=== PATIENT | female | born 1960 | race American Indian/Alaskan Native ===

== ENCOUNTER 2017-06-19 00:23 | Emergency (ER) | payer SELFPAY ==
[2017-06-19 00:54] VITALS: BP 148/82
[2017-06-19 01:23] LABS: Basophils % (Auto) 0.9 % (0.0-1.8); Mean Corpuscular HGB Conc 33 % (30-34); Mean Corpuscular Hemoglobin 29 pg (28-32); Mean Corpuscular Volume 87 fl (79-97); Platelet Count 275 K/mm3 (140-440); Red Blood Count 4.14 M/mm3 (3.65-5.03); Red Cell Distribution Width 14.6 % (13.2-15.2); White Blood Count 5.7 K/mm3 (4.5-11.0)
[2017-06-19 01:36] LABS: Anion Gap 21 mmol/L; BUN/Creatinine Ratio 20; Blood Urea Nitrogen 14 mg/dL (7-17); Calcium 8.9 mg/dL (8.4-10.2); Carbon Dioxide 23 mmol/L (22-30); Chloride 97.9 mmol/L (98-107); Glucose 139 mg/dL (65-100); Potassium 3.4 mmol/L (3.6-5.0); Sodium 138 mmol/L (137-145)
== END 2017-06-19 07:50 | disposition left against medical advice (07) ==
LOC: ED 00:23
DX: R07.9 Chest pain, unspecified (principal); Z53.21 Procedure and treatment not carried out due to patient leaving prior to being seen by health care provider
CPT/HCPCS: 36415; 80048; 84484; 85025; 93005; 93010

== ENCOUNTER 2019-11-18 10:31 | Emergency (ER) | payer SELFPAY ==
[2019-11-18 11:53] LABS: Bacteria,Urine 2+ /HPF (Negative); Bilirubin,Urine NEG (Negative); Blood,Urine NEG (Negative); Color,Urine Yellow (Yellow); Mucus,Urine 2+ /HPF; Protein,Urine <15 mg/dL mg/dL (Negative); Urobilinogen,Urine < 2.0 mg/dL (<2.0)
--- NOTE | 2019-11-18 13:32 | Emergency Department Report ---
ED General Adult HPI - General Chief complaint: Back Pain/Injury Stated complaint: BACK PAIN Time Seen by Provider: 11/18/19 13:15 Source: patient Mode of arrival: Ambulatory Limitations: No Limitations - History of Present Illness Initial comments: 59-year-old -Turkish female presents to the emergency room for left side back pain x1 year. Patient states that the pain is deep inside on the left flank and it radiates down her leg. Patient denies any fever denies any diarrhea but does admit to vaginal spotting that is intermittent. Patient reports her last menstrual period was 02/19/2015. Patient denies any dysuria denies any abdominal pain but does report some mild pelvic discomfort. Patient reports nothing makes it worse with pain medication makes it better. Patient has been taken Aleve and Tylenol. Patient does have a primary care provider Dr. Amador at [facility] in [place]. Onset/Timin -: year(s) Location: back Severity scale (0 -10): 8 Quality: aching Consistency: intermittent Improves with: medication Worsens with: none Treatments Prior to Arrival: none - Related Data Home Medications Medication Instructions Recorded Confirmed Last Taken Pravastatin 20 mg PO HS 02/19/15 02/19/15 Unknown Previous Rx's Medication Instructions Recorded Last Taken Type oxyCODONE /ACETAMINOPHEN [Percocet 1 tab PO Q6HR PRN #20 tab 11/30/15 Unknown Rx 5/325] Nitrofurantoin [place]/M-Cryst 100 mg PO Q12HR #14 capsule 11/18/19 Unknown Rx [Macrobid CAP] Allergies Allergy/AdvReac Type Severity Reaction Status Date / Time No Known Allergies Allergy Verified 04/09/14 11:08 ED Review of Systems ROS: Stated complaint: BACK PAIN Other details as noted in HPI Comment: All other systems reviewed and negative ED Past Medical Hx - Past Medical History Hx Hypertension: No Hx Liver Disease: No Hx Renal Disease: No Hx Arthritis: Yes Hx Seizures: No Hx Asthma: No Hx COPD: No Additional medical history: High Cholesterol, Thyroid disease, - Surgical History Additional Surgical History: parathyroid surgery November 2015 - Social History Smoking Status: Never Smoker Substance Use Type: None - Medications Home Medications: Home Medications Medication Instructions Recorded Confirmed Last Taken Type Pravastatin 20 mg PO HS 02/19/15 02/19/15 Unknown History oxyCODONE /ACETAMINOPHEN [Percocet 1 tab PO Q6HR PRN #20 tab 11/30/15 Unknown Rx 5/325] Nitrofurantoin [place]/M-Cryst 100 mg PO Q12HR #14 capsule 11/18/19 Unknown Rx [Macrobid CAP] ED Physical Exam - General Limitations: No Limitations General appearance: alert, in no apparent distress - Head Head exam: Present: atraumatic, normocephalic - Eye Eye exam: Present: normal appearance - ENT ENT exam: Present: mucous membranes moist - Neck Neck exam: Present: normal inspection - Respiratory Respiratory exam: Present: normal lung sounds bilaterally. Absent: respiratory distress - Cardiovascular Cardiovascular Exam: Present: regular rate, normal rhythm. Absent: systolic murmur, diastolic murmur, rubs, gallop - GI/Abdominal GI/Abdominal exam: Present: soft, normal bowel sounds - Extremities Exam Extremities exam: Present: normal inspection - Back Exam Back exam: Present: normal inspection - Neurological Exam Neurological exam: Present: alert, oriented X3 - Psychiatric Psychiatric exam: Present: normal affect, normal mood - Skin Skin exam: Present: warm, dry, intact, normal color. Absent: rash ED Course Vital Signs 11/18/19 11:05 Temperature 98.5 F Pulse Rate 67 Respiratory 18 Rate Blood Pressure 159/91 O2 Sat by Pulse 99 Oximetry ED Medical Decision Making - Lab Data Lab Results 11/18/19 Range/Units 11:34 Urine Color Yellow (Yellow) Urine Turbidity Slightly-cloudy (Clear) Urine pH 5.0 (5.0-7.0) Ur Specific [place] 1.026 (1.003-1.030) Urine Protein <15 mg/dl (Negative) mg/dL Urine Glucose (UA) Neg (Negative) mg/dL Urine Ketones Neg (Negative) mg/dL Urine Blood Neg (Negative) Urine Nitrite Neg (Negative) Urine Bilirubin Neg (Negative) Urine Urobilinogen < 2.0 (<2.0) mg/dL Ur Leukocyte Esterase Mod (Negative) Urine WBC (Auto) 14.0 H (0.0-6.0) /HPF Urine RBC (Auto) 5.0 (0.0-6.0) /HPF U Epithel Cells (Auto) 7.0 (0-13.0) /HPF Urine Bacteria (Auto) 2+ (Negative) /HPF Urine Mucus 2+ /HPF - Medical Decision Making 59-year-old -Turkish female presents to the emergency room for left side back pain x1 year. Patient states that the pain is deep inside on the left flank and it radiates down her leg. Patient denies any fever denies any diarrhea but does admit to vaginal spotting that is intermittent. Patient reports her last menstrual period was 02/19/2015. Patient denies any dysuria denies any abdominal pain but does report some mild pelvic discomfort. Patient reports nothing makes it worse with pain medication makes it better. Patient has been taken Aleve and Tylenol. Patient does have a primary care provider Dr. Amador at [facility] in [place]. Patient has a urinary tract infection will be treated with Macrobid. Urine culture has been sent. Patient is to follow back up at [facility] where her primary care provider is. Critical care attestation.: If time is entered above; I have spent that time in minutes in the direct care of this critically ill patient, excluding procedure time. ED Disposition Clinical Impression: UTI (urinary tract infection) Qualifiers: Urinary tract infection type: site unspecified Hematuria presence: with hematuria Qualified Code(s): N39.0 - Urinary tract infection, site not specified; R31.9 - Hematuria, unspecified Disposition: DC-01 TO HOME OR SELFCARE Is pt being admited?: No Does the pt Need Aspirin: No Condition: Stable Instructions: Urinary Tract Infection in Women (ED) Additional Instructions: Patient has a urinary tract infection will be treated with Macrobid. Patient is to follow back up at [facility] where her primary care provider is. Prescriptions: Nitrofurantoin [place]/M-Cryst [Macrobid CAP] 100 mg PO Q12HR #14 capsule Referrals: KAMI MCARTHUR MD [Primary Care Provider] - 3-5 Days [facility] [Provider Group] - 3-5 Days
[2019-11-18 15:55] VITALS: BP 150/88
== END 2019-11-18 15:54 | disposition home or self-care (01) ==
LOC: ED 10:31
DX: N39.0 Urinary tract infection, site not specified (principal); M19.90 Unspecified osteoarthritis, unspecified site; E78.00 Pure hypercholesterolemia, unspecified; Z98.890 Other specified postprocedural states; Z79.899 Other long term (current) drug therapy
CPT/HCPCS: 81001; 87086; 99283

== ENCOUNTER 2021-05-11 10:52 | Emergency (ER) | payer OTHER ==
--- NOTE | 2021-05-11 11:21 | Emergency Department Report ---
ED Chest Pain HPI - General Chief Complaint: Medical Clearance Stated Complaint: POSS COVID POSITIVE/CHEST PAIN Time Seen by Provider: 05/11/21 11:12 Source: patient, EMS Mode of arrival: Ambulatory Limitations: No Limitations - History of Present Illness Initial Comments: Patient is a 60-year-old female presents emergency room complaints of midsternal chest pain that began at 3 AM this morning. She describes the pain as intermittent sharp pain. She states that she also has upper back pain which she describes as an aching. She states that she has had intermittent fever and chills. Patient states that she is positive for COVID-19. She states that she received a COVID 19 antibody infusion at [facility]. She states that she has occasional mild shortness of breath. She denies any hemoptysis, vomiting, diarrhea, leg swelling, calf pain, numbness, weakness. Past medical history of hyperlipidemia. No allergies to medications. She is a never smoker. She denies any family cardiac history. She denies any recent travel, recent surgery, recent immobilization, hormone use. - Related Data Home Medications Medication Instructions Recorded Confirmed Last Taken Pravastatin 20 mg PO HS 02/19/15 02/19/15 Unknown Previous Rx's Medication Instructions Recorded Last Taken Type oxyCODONE /ACETAMINOPHEN [Percocet 1 tab PO Q6HR PRN #20 tab 11/30/15 Unknown Rx 5/325] Nitrofurantoin [place]/M-Cryst 100 mg PO Q12HR #14 capsule 11/18/19 Unknown Rx [Macrobid CAP] Azithromycin [Zithromax TAB] 250 mg PO QDAY 5 Days #6 tablet 05/11/21 Unknown Rx Benzonatate [Tessalon Perles] 100 mg PO Q8HR PRN #12 capsule 05/11/21 Unknown Rx Dexamethasone 6 mg PO DAILY 7 Days #7 tab 05/11/21 Unknown Rx Allergies Allergy/AdvReac Type Severity Reaction Status Date / Time No Known Allergies Allergy Verified 04/09/14 11:08 Heart Score - HEART Score History: Slightly suspicious EKG: Normal Age: 45-65 Risk factors: 1-2 risk factors Troponin: < normal limit HEART Score: 2 - EKG Read Time Time EKG Completed: 13:15 EKG Read Time: 13:15 ED Review of Systems ROS: Stated complaint: POSS COVID POSITIVE/CHEST PAIN Other details as noted in HPI Comment: All other systems reviewed and negative ED Past Medical Hx - Past Medical History Hx Hypertension: No Hx Liver Disease: No Hx Renal Disease: No Hx Arthritis: Yes Hx Seizures: No Hx Asthma: No Hx COPD: No Additional medical history: High Cholesterol, Thyroid disease, - Surgical History Additional Surgical History: parathyroid surgery November 2015 - Social History Smoking Status: Never Smoker - Medications Home Medications: Home Medications Medication Instructions Recorded Confirmed Last Taken Type Pravastatin 20 mg PO HS 02/19/15 02/19/15 Unknown History oxyCODONE /ACETAMINOPHEN [Percocet 1 tab PO Q6HR PRN #20 tab 11/30/15 Unknown Rx 5/325] Nitrofurantoin [place]/M-Cryst 100 mg PO Q12HR #14 capsule 11/18/19 Unknown Rx [Macrobid CAP] Azithromycin [Zithromax TAB] 250 mg PO QDAY 5 Days #6 tablet 05/11/21 Unknown Rx Benzonatate [Tessalon Perles] 100 mg PO Q8HR PRN #12 capsule 05/11/21 Unknown Rx Dexamethasone 6 mg PO DAILY 7 Days #7 tab 05/11/21 Unknown Rx ED Physical Exam - General Limitations: No Limitations General appearance: alert, in no apparent distress - Head Head exam: Present: atraumatic, normocephalic - Eye Eye exam: Present: normal appearance - Respiratory Respiratory exam: Present: normal lung sounds bilaterally. Absent: respiratory distress, wheezes, rales, rhonchi, stridor, chest wall tenderness, accessory muscle use, decreased breath sounds, prolonged expiratory - Cardiovascular Cardiovascular Exam: Present: regular rate, normal rhythm, normal heart sounds. Absent: systolic murmur, diastolic murmur, rubs, gallop - Neurological Exam Neurological exam: Present: alert, oriented X3 - Psychiatric Psychiatric exam: Present: normal affect, normal mood - Skin Skin exam: Present: warm, dry, intact ED Course Vital Signs 05/11/21 05/11/21 05/11/21 10:59 11:04 14:05 Temperature 98.5 F Pulse Rate 63 52 L Respiratory 20 18 Rate Blood Pressure 169/89 159/79 O2 Sat by Pulse 98 98 100 Oximetry - Reevaluation(s) Reevaluation #1: 05/11/21 12:30 called the lab regarding delay in d-dimer results, they advised me it was on the analyzer 05/11/21 13:40 called the lab again regarding delay in d-dimer results as it has been over an hour, they advised me they would "look into it" CLEM score - Clem Score Age > 65: (0) No Aspirin use within the Past 7 Days: (0) No 3 or more CAD Risk Factors: (0) No 2 or more Angina events in past 24 hrs: (0) No Known CAD with more than 50% Stenosis: (0) No Elevated Cardiac Markers: (0) No ST Deviation Greater than 0.5mm: (0) No CLEM Score: 0 ED Medical Decision Making - Lab Data Result diagrams: 05/11/21 11:41 05/11/21 11:41 Lab Results 05/11/21 05/11/21 05/11/21 Range/Units 11:41 11:41 11:41 WBC 3.5 L (4.5-11.0) K/mm3 RBC 3.89 (3.65-5.03) M/mm3 Hgb 11.3 (10.1-14.3) gm/dl Hct 34.8 (30.3-42.9) % MCV 89 (79-97) fl MCH 29 (28-32) pg MCHC 32 (30-34) % RDW 14.2 (13.2-15.2) % Plt Count 245 (140-440) K/mm3 Lymph % (Auto) 43.3 H (13.4-35.0) % [place] % (Auto) 9.1 H (0.0-7.3) % Eos % (Auto) 2.2 (0.0-4.3) % Baso % (Auto) 0.3 (0.0-1.8) % Lymph # (Auto) 1.5 (1.2-5.4) K/mm3 [place] # (Auto) 0.3 (0.0-0.8) K/mm3 Eos # (Auto) 0.1 (0.0-0.4) K/mm3 Baso # (Auto) 0.0 (0.0-0.1) K/mm3 Seg Neutrophils % 45.1 (40.0-70.0) % Seg Neutrophils # 1.6 L (1.8-7.7) K/mm3 D-Dimer 477.7 H (0-234) ng/mlDDU Sodium 143 (137-145) mmol/L Potassium 3.7 (3.6-5.0) mmol/L Chloride 105.0 (98-107) mmol/L Carbon Dioxide 26 (22-30) mmol/L Anion Gap 16 mmol/L BUN 9 (7-17) mg/dL Creatinine 0.5 L (0.6-1.2) mg/dL Estimated GFR > 60 ml/min BUN/Creatinine Ratio 18 % Glucose 108 H (65-100) mg/dL Calcium 9.7 (8.4-10.2) mg/dL Total Bilirubin 0.40 (0.1-1.2) mg/dL AST 18 (5-40) units/L ALT 15 (7-56) units/L Alkaline Phosphatase 83 (35-129) units/L Troponin T < 0.010 (0.00-0.029) ng/mL NT-Pro-B Natriuret Pep 72.13 (0-900) pg/mL Total Protein 7.7 (6.3-8.2) g/dL Albumin 3.8 L (3.9-5) g/dL Albumin/Globulin Ratio 1.0 % 05/11/21 Range/Units 14:46 WBC (4.5-11.0) K/mm3 RBC (3.65-5.03) M/mm3 Hgb (10.1-14.3) gm/dl Hct (30.3-42.9) % MCV (79-97) fl MCH (28-32) pg MCHC (30-34) % RDW (13.2-15.2) % Plt Count (140-440) K/mm3 Lymph % (Auto) (13.4-35.0) % [place] % (Auto) (0.0-7.3) % Eos % (Auto) (0.0-4.3) % Baso % (Auto) (0.0-1.8) % Lymph # (Auto) (1.2-5.4) K/mm3 [place] # (Auto) (0.0-0.8) K/mm3 Eos # (Auto) (0.0-0.4) K/mm3 Baso # (Auto) (0.0-0.1) K/mm3 Seg Neutrophils % (40.0-70.0) % Seg Neutrophils # (1.8-7.7) K/mm3 D-Dimer (0-234) ng/mlDDU Sodium (137-145) mmol/L Potassium (3.6-5.0) mmol/L Chloride (98-107) mmol/L Carbon Dioxide (22-30) mmol/L Anion Gap mmol/L BUN (7-17) mg/dL Creatinine (0.6-1.2) mg/dL Estimated GFR ml/min BUN/Creatinine Ratio % Glucose (65-100) mg/dL Calcium (8.4-10.2) mg/dL Total Bilirubin (0.1-1.2) mg/dL AST (5-40) units/L ALT (7-56) units/L Alkaline Phosphatase (35-129) units/L Troponin T < 0.010 (0.00-0.029) ng/mL NT-Pro-B Natriuret Pep (0-900) pg/mL Total Protein (6.3-8.2) g/dL Albumin (3.9-5) g/dL Albumin/Globulin Ratio % Vital Signs 05/11/21 05/11/21 05/11/21 10:59 11:04 14:05 Temperature 98.5 F Pulse Rate 63 52 L Respiratory 20 18 Rate Blood Pressure 169/89 159/79 O2 Sat by Pulse 98 98 100 Oximetry - EKG Data EKG shows normal: sinus rhythm, axis, intervals, QRS complexes Rate: bradycardia (51 bpm) - EKG Data 05/11/21 15:10 non specific T wave inversion in Lead III, aVF, v1, v2, v3 no STEMI - Radiology Data Radiology results: report reviewed Ordering Physician: ALFREDA GIORDANO Date of Service: 05/11/21 Procedure(s): XR chest routine 2V Accession Number(s): [id number] cc: ALFREDA GIORDANO Fluoro Time In Minutes: CHEST 2 VIEWS INDICATION / CLINICAL INFORMATION: Chest Pain. COMPARISON: None available. FINDINGS: SUPPORT DEVICES: None. HEART / MEDIASTINUM: No significant abnormality. LUNGS / PLEURA: No significant pulmonary or pleural abnormality. No pneumothorax. ADDITIONAL FINDINGS: No significant additional findings. IMPRESSION: 1. No acute findings. Signer Name: Jarred Chowdhury MD Signed: 05/11/2021 11:35 AM Workstation Name: [id number] Transcribed By: JORDI Dictated By: Jarred Chowdhury MD Electronically Authenticated By: Jarred Chowdhury MD Signed Date/Time: 05/11/211134 DD/ 34 TD/TT: Ordering Physician: ALFREDA GIORDANO Date of Service: 05/11/21 Procedure(s): CT angio chest Accession Number(s): [id number] cc: ALFREDA GIORDANO CTA CHEST WITH IV CONTRAST INDICATION: CP, SOB, d-dimer elevated, COVID + 12 days ago 100 ML OMNI 350 . TECHNIQUE: Axial CT images were obtained through the chest after injection of 100 cc IV contrast. 3 plane MIP reconstructions were produced. All CT scans at this location are performed using CT dose reduction for ALARA by means of automated exposure control. COMPARISON: Chest x-ray same day FINDINGS: PULMONARY ARTERIES: No pulmonary emboli. THORACIC AORTA: No acute abnormality. HEART: Normal. CORONARY ARTERIES: No significant calcification. PLEURA: No pleural effusion. No pneumothorax. LYMPH NODES: No significant adenopathy. LUNGS: Multifocal patchy groundglass parenchymal disease right middle and both lower lobes characteristic for Covid pneumonia ADDITIONAL FINDINGS: None. UPPER ABDOMEN: No acute findings. SKELETAL STRUCTURES: No significant osseous abnormality. IMPRESSION: 1. No CT evidence for pulmonary embolism. 2. Bilateral Covid pneumonia Signer Name: John Crocker MD Signed: 05/11/2021 6:13 PM Workstation Name: [id number] Transcribed By: TL Dictated By: John Crocker MD Electronically Authenticated By: John Crocker MD Signed Date/Time: 05/11/211812 DD/ 09 TD/TT: - Medical Decision Making Patient is a 60-year-old female presents emergency room complaints of midsternal chest pain that began at 3 AM this morning. She describes the pain as intermittent sharp pain. She states that she also has upper back pain which she describes as an aching. She states that she has had intermittent fever and chills. Patient states that she is positive for COVID-19. She states that she received a COVID 19 antibody infusion at [facility]. She states that she has occasional mild shortness of breath. She denies any hemoptysis, vomiting, diarrhea, leg swelling, calf pain, numbness, weakness. Past medical history of hyperlipidemia. No allergies to medications. She is a never smoker. She denies any family cardiac history. She denies any recent travel, recent surgery, recent immobilization, hormone use. Vitals are stable. EKG with sinus bradycardia and nonspecific T wave inversion, no STEMI. Labs with a decreased white blood cell count and elevated D-dimer. Troponin is negative x2. Chest x- ray: 1. No acute findings. Multiple nurses attempted to get IV but had difficulty, the IV team was called and an IV was able to be placed in the AC for CTA. CT angio chest: 1. No CT evidence for pulmonary embolism. 2. Bilateral Covid pneumonia. Patient was ambulated in the emergency department by florentino Hoffman and maintain oxygen saturation of 100% on room air. Heart score is 2, CLEM score is 0, low risk for cardiac event. Symptoms likely related to patient's findings of COVID-19 pneumonia. Patient given prescription for medication. Advised patient Please take medication as prescribed. Follow-up with your [facility] care doctor for reexamination. Return to emergency room immediately for any new or worsening symptoms. Recommend for you to get a pulse oximetry meter [id number] and to return to emergency room if your oxygen is dropping below 93%. Critical care attestation.: If time is entered above; I have spent that time in minutes in the direct care of this critically ill patient, excluding procedure time. ED Disposition Clinical Impression: Pneumonia due to COVID-19 virus, SOB (shortness of breath) Chest pain Qualifiers: Chest pain type: unspecified Qualified Code(s): R07.9 - Chest pain, unspecified Disposition: 01 HOME / SELF CARE / HOMELESS Is pt being admited?: No Does the pt Need Aspirin: No Condition: Stable Instructions: COVID-19, Bacterial Pneumonia (ED) Additional Instructions: Please take medication as prescribed. Follow-up with your primary care doctor for reexamination. Return to emergency room immediately for any new or worsening symptoms. Recommend for you to get a pulse oximetry meter [id number] and to return to emergency room if your oxygen is dropping below 93%. Prescriptions: Dexamethasone 6 mg PO DAILY 7 Days #7 tab Benzonatate [Tessalon Perles] 100 mg PO Q8HR PRN #12 capsule PRN Reason: cough Azithromycin [Zithromax TAB] 250 mg PO QDAY 5 Days #6 tablet Referrals: PRIMARY CARE,MD [Primary Care Provider] - 2-3 Days Time of Disposition: 18:19 Print Language: BOTSWANAN
--- NOTE | 2021-05-11 11:40 | XRay Report ---
CHEST 2 VIEWS INDICATION / CLINICAL INFORMATION: Chest Pain. COMPARISON: None available. FINDINGS: SUPPORT DEVICES: None. HEART / MEDIASTINUM: No significant abnormality. LUNGS / PLEURA: No significant pulmonary or pleural abnormality. No pneumothorax. ADDITIONAL FINDINGS: No significant additional findings. IMPRESSION: 1. No acute findings. Signer Name: Jarred Chowdhury MD Signed: 05/11/2021 11:35 AM Workstation Name: [id number]
[2021-05-11 12:06] LABS: Basophils % (Auto) 0.3 % (0.0-1.8); Eosinophils # (Auto) 0.1 K/mm3 (0.0-0.4); Eosinophils % (Auto) 2.2 % (0.0-4.3); Hematocrit 34.8 % (30.3-42.9); Hemoglobin 11.3 gm/dl (10.1-14.3); Lymphocytes # (Auto) 1.5 K/mm3 (1.2-5.4); Lymphocytes % (Auto) 43.3 % (13.4-35.0); Mean Corpuscular HGB Conc 32 % (30-34); Mean Corpuscular Volume 89 fl (79-97); Monocytes # (Auto) 0.3 K/mm3 (0.0-0.8); Monocytes % (Auto) 9.1 % (0.0-7.3); Platelet Count 245 K/mm3 (140-440); Red Blood Count 3.89 M/mm3 (3.65-5.03); Red Cell Distribution Width 14.2 % (13.2-15.2)
[2021-05-11 12:22] LABS: Alanine Aminotransferase 15 units/L (7-56); Albumin 3.8 g/dL (3.9-5); Blood Urea Nitrogen 9 mg/dL (7-17); Calcium 9.7 mg/dL (8.4-10.2); Hemolysis Index 4
[2021-05-11 12:43] LABS: BUN/Creatinine Ratio 18
[2021-05-11 14:09] VITALS: BP 159/79
--- NOTE | 2021-05-11 18:17 | Cat Scan Report ---
CTA CHEST WITH IV CONTRAST INDICATION: CP, SOB, d-dimer elevated, COVID + 12 days ago 100 ML OMNI 350 . TECHNIQUE: Axial CT images were obtained through the chest after injection of 100 cc IV contrast. 3 plane MIP re constructions were produced. All CT scans at this location are performed using CT dose reduction for ALARA by means of automated exposure control. COMPARISON: Chest x-ray same day FINDINGS: PULMONARY ARTERIES: No pulmonary emboli. THORACIC AORTA: No acute abnormality. HEART: Normal. CORONARY ARTERIES: No significant calcification. PLEURA: No pleural effusion. No pneumothorax. LYMPH NODES: No significant adenopathy. LUNGS: Multifocal patchy groundglass parenchymal disease right middle and both lower lobes characteri stic for Covid pneumonia ADDITIONAL FINDINGS: None. UPPER ABDOMEN: No acute findings. SKELETAL STRUCTURES: No significant osseous abnormality. IMPRESSION: 1. No CT evidence for pulmonary embolism. 2. Bilateral Covid pneumonia Signer Name: John Crocker MD Signed: 05/11/2021 6:13 PM Workstation Name: [id number]
--- NOTE | 2021-05-12 13:32 | Electrocardiograph Report ---
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
== END 2021-05-11 18:36 | disposition home or self-care (01) ==
LOC: ED 10:52
DX: U07.1 COVID-19 (principal); J12.82 Pneumonia due to coronavirus disease 2019; R06.02 Shortness of breath; R07.9 Chest pain, unspecified; M19.90 Unspecified osteoarthritis, unspecified site; E78.00 Pure hypercholesterolemia, unspecified; E07.9 Disorder of thyroid, unspecified; Z98.890 Other specified postprocedural states
CPT/HCPCS: 36415; 71046; 71275; 80053; 83880; 84484; 85025; 85379; 93005; 99285; Q9967

== ENCOUNTER 2021-05-25 21:48 | Emergency (ER) | payer OTHER ==
[2021-05-25 22:12] VITALS: BP 119/66
[2021-05-25] MEDS ORDERED: ASPIRIN 325 MG TAB PO ONE (22:40)
--- NOTE | 2021-05-25 22:46 | Emergency Department Report ---
ED Chest Pain HPI - General Chief Complaint: Chest Pain Stated Complaint: CHEST PAIN PUI?: No Time Seen by Provider: 05/25/21 22:25 Source: patient, EMS Mode of arrival: Stretcher Limitations: No Limitations - History of Present Illness Initial Comments: Patient is a 60-year-old female who presents emergency room with complaints of chest pain. Patient states her chest pain is in her bilateral chest and substernal. Patient states that it started last night. Patient states the chest pain is intermittent. Patient states it comes and goes approximately once to twice per hour. Patient denies fever and chills. Patient denies recent travel. Patient denies recent international travel. Patient denies exposure to the novel coronavirus. Patient denies sick contacts. Patient denies fever and chills. Patient denies cough. Patient denies diarrhea. Patient denies coming in contact with anybody with symptoms of the novel coronavirus. Patient states she is not vaccinated gets COVID-19. Patient states she had Covid 26 days ago but did not require admission to the hospital. MD Complaint: chest pain -: Sudden Onset: during rest Pain Location: substernal, left chest, right chest Pain Radiation: none Severity scale (0 -10): 5 Quality: heaviness Consistency: intermittent Improves With: nothing Worsens With: nothing re: denies: nausea, vomting, diaphoresis, dyspnea, sense of impending doom Other Symptoms: denies: cough, fever, syncope, rash, acid taste in mouth, leg swelling, palpitations, burping Treatments Prior to Arrival: none Aspirin use within the Past 7 Days: (0) No - Related Data On Oral Contraceptives: No Home Medications Medication Instructions Recorded Confirmed Last Taken Pravastatin 20 mg PO HS 02/19/15 02/19/15 Unknown Previous Rx's Medication Instructions Recorded Last Taken Type oxyCODONE /ACETAMINOPHEN [Percocet 1 tab PO Q6HR PRN #20 tab 11/30/15 Unknown Rx 5/325] Nitrofurantoin [place]/M-Cryst 100 mg PO Q12HR #14 capsule 11/18/19 Unknown Rx [Macrobid CAP] Azithromycin [Zithromax TAB] 250 mg PO QDAY 5 Days #6 tablet 05/11/21 Unknown Rx Benzonatate [Tessalon Perles] 100 mg PO Q8HR PRN #12 capsule 05/11/21 Unknown Rx Dexamethasone 6 mg PO DAILY 7 Days #7 tab 05/11/21 Unknown Rx Allergies Allergy/AdvReac Type Severity Reaction Status Date / Time No Known Allergies Allergy Verified 05/25/21 22:12 Heart Score - HEART Score History: Slightly suspicious EKG: Normal Age: 45-65 Risk factors: 1-2 risk factors Troponin: < normal limit HEART Score: 2 - EKG Read Time Time EKG Completed: 03:07 EKG Read Time: 03:10 ED Review of Systems ROS: Stated complaint: CHEST PAIN Other details as noted in HPI Constitutional: denies: chills, fever Eyes: denies: eye pain, eye discharge, vision change ENT: denies: ear pain, throat pain Respiratory: denies: cough, shortness of breath, wheezing Cardiovascular: as per HPI, chest pain. denies: palpitations Endocrine: no symptoms reported Gastrointestinal: denies: abdominal pain, nausea, diarrhea Genitourinary: denies: urgency, dysuria, discharge Musculoskeletal: denies: back pain, joint swelling, arthralgia Skin: denies: rash, lesions Neurological: denies: headache, weakness, paresthesias Psychiatric: denies: anxiety, depression Hematological/Lymphatic: denies: easy bleeding, easy bruising ED Past Medical Hx - Past Medical History Previous Medical History?: Yes Hx Hypertension: No Hx Liver Disease: No Hx Renal Disease: No Hx Arthritis: Yes Hx Seizures: No Hx Asthma: No Hx COPD: No Additional medical history: High Cholesterol, Thyroid disease, - Surgical History Past Surgical History?: Yes Additional Surgical History: parathyroid surgery November 2015 - Family History Family history: no significant - Social History Smoking Status: Never Smoker Substance Use Type: None - Medications Home Medications: Home Medications Medication Instructions Recorded Confirmed Last Taken Type Pravastatin 20 mg PO HS 02/19/15 02/19/15 Unknown History oxyCODONE /ACETAMINOPHEN [Percocet 1 tab PO Q6HR PRN #20 tab 11/30/15 Unknown Rx 5/325] Nitrofurantoin [place]/M-Cryst 100 mg PO Q12HR #14 capsule 11/18/19 Unknown Rx [Macrobid CAP] Azithromycin [Zithromax TAB] 250 mg PO QDAY 5 Days #6 tablet 05/11/21 Unknown Rx Benzonatate [Tessalon Perles] 100 mg PO Q8HR PRN #12 capsule 05/11/21 Unknown Rx Dexamethasone 6 mg PO DAILY 7 Days #7 tab 05/11/21 Unknown Rx ED Physical Exam - General Limitations: No Limitations General appearance: alert, in no apparent distress - Head Head exam: Present: atraumatic, normocephalic - Eye Eye exam: Present: normal appearance - ENT ENT exam: Present: mucous membranes moist - Neck Neck exam: Present: normal inspection - Respiratory Respiratory exam: Present: normal lung sounds bilaterally. Absent: respiratory distress - Cardiovascular Cardiovascular Exam: Present: regular rate, normal rhythm. Absent: systolic murmur, diastolic murmur, rubs, gallop - GI/Abdominal GI/Abdominal exam: Present: soft, normal bowel sounds. Absent: distended, tenderness, guarding - Extremities Exam Extremities exam: Present: normal inspection - Back Exam Back exam: Present: normal inspection - Neurological Exam Neurological exam: Present: alert, oriented X3 - Psychiatric Psychiatric exam: Present: normal affect, normal mood - Skin Skin exam: Present: warm, dry, intact, normal color. Absent: rash ED Course Vital Signs 05/25/21 22:05 Temperature 98.8 F Pulse Rate 89 Respiratory 18 Rate Blood Pressure 119/66 O2 Sat by Pulse 99 Oximetry - Reevaluation(s) Reevaluation #1: Patient states she is pain-free. Patient states she has not had any pain while in the ER. I discussed all results and clinical findings with patient. I discussed plan of care with patient. Patient agrees with plan of care. Patient is stable for discharge. Patient will be discharged home. Patient given discharge instructions. Patient voiced understanding of discharge instructions. 05/26/21 03:35 MIMI score - Mimi Score Age > 65: (0) No Aspirin use within the Past 7 Days: (0) No 3 or more CAD Risk Factors: (0) No 2 or more Angina events in past 24 hrs: (0) No Known CAD with more than 50% Stenosis: (0) No Elevated Cardiac Markers: (0) No ST Deviation Greater than 0.5mm: (0) No MIMI Score: 0 ED Medical Decision Making - Lab Data Result diagrams: 05/25/21 22:59 05/25/21 22:59 - EKG Data -: EKG Interpreted by Me EKG shows normal: sinus rhythm, axis, intervals, QRS complexes, ST-T waves Rate: bradycardia - Radiology Data Radiology results: report reviewed, image reviewed CHEST 1 VIEW INDICATION / CLINICAL INFORMATION: Chest Pain STUDY TIME: 2240 COMPARISON: 05/11/2021 FINDINGS: SUPPORT DEVICES: None HEART / MEDIASTINUM: No significant abnormality. LUNGS / PLEURA: Artifact is seen in the mid chest. Lung johnston appear clear. No pneumothorax. ADDITIONAL FINDINGS: No significant additional findings. IMPRESSION: No significant acute abnormality - Medical Decision Making Patient is a 60-year-old female that presents emergency room with chest pain. Patient's chest pain was resolved prior to initial evaluation. Patient did not have any further chest pain in the ER. Patient had a full cardiac work-up. Patient had labs done which were essentially unremarkable. Patient had 2 sets of cardiac enzymes were both negative. Patient had a chest x-ray which shows no acute findings. Patient had a EKG done which shows sinus bradycardia and normal ST. No ST changes noted on EKG. I personally reviewed the patient's EKG and chest x-ray. Patient does not require any further emergency medical service. Patient not require inpatient service. Patient stable for discharge. I discussed all results and clinical findings with patient. I discussed plan of care with patient. Patient agrees with plan of care. Patient is stable for discharge. Patient will be discharged home. Patient given discharge instructions. Patient voiced understanding of discharge instructions. Patient is chest pain is low risk. Patient's heart score is low. Patient's MIMI score is low. Patient is chest pain can be worked up as an outpatient. Patient instructed to follow-up with her primary care. Patient information will be faxed over to our cardiology group in order to follow-up with the patient's chest pain and for risk stratification of the patient's chest pain. - Differential Diagnosis Chest pain, acid reflux, chest wall pain, noncardiac chest pain Critical care attestation.: If time is entered above; I have spent that time in minutes in the direct care of this critically ill patient, excluding procedure time. ED Disposition Clinical Impression: Chest pain Qualifiers: Chest pain type: unspecified Qualified Code(s): R07.9 - Chest pain, unspecified Disposition: HOME / SELF CARE / HOMELESS Is pt being admited?: No Does the pt Need Aspirin: No Condition: Stable Instructions: Nonspecific Chest Pain, Adult, Chest Wall Pain Additional Instructions: Patient to follow-up with primary care in 2 to 3 days. Patient to follow-up with ethical hacker in 2 to 3 days. Patient to rest. Patient to increase water. Patient to avoid strenuous exercise or heavy lifting until cleared by ethical hacker and primary care. Patient to take Tylenol or ibuprofen as needed for pain. Patient continue all home medications. Patient to return to the ER if condition worsens, changes or new symptoms arise. Referrals: PRIMARY CARE, [Primary Care Provider] - 2-3 Days CAMILO HEREDIA MD [Staff Physician] - 3-5 Days Time of Disposition: 03:39
--- NOTE | 2021-05-25 23:10 | XRay Report ---
CHEST 1 VIEW INDICATION / CLINICAL INFORMATION: Chest Pain STUDY TIME: 2240 COMPARISON: 05/11/2021 FINDINGS: SUPPORT DEVICES: None HEART / MEDIASTINUM: No significant abnormality. LUNGS / PLEURA: Artifact is seen in the mid chest. Lung johnston appear clear. No pneumothorax. ADDITIONAL FINDINGS: No significant additional findings. IMPRESSION: No significant acute abnormality Signer Name: Prosper Rincon MD Signed: 05/25/2021 11:06 PM Workstation Name: [id number]
[2021-05-25 23:27] LABS: Basophils % (Auto) 0.5 % (0.0-1.8); Eosinophils # (Auto) 0.2 K/mm3 (0.0-0.4); Eosinophils % (Auto) 4.5 % (0.0-4.3); Hematocrit 33.8 % (30.3-42.9); Hemoglobin 11.1 gm/dl (10.1-14.3); Lymphocytes # (Auto) 1.8 K/mm3 (1.2-5.4); Lymphocytes % (Auto) 39.5 % (13.4-35.0); Mean Corpuscular HGB Conc 33 % (30-34); Mean Corpuscular Volume 90 fl (79-97); Monocytes # (Auto) 0.4 K/mm3 (0.0-0.8); Monocytes % (Auto) 9.7 % (0.0-7.3); Platelet Count 253 K/mm3 (140-440); Red Blood Count 3.74 M/mm3 (3.65-5.03); Red Cell Distribution Width 15.5 % (13.2-15.2)
[2021-05-25 23:41] LABS: Alanine Aminotransferase 14 units/L (7-56); Albumin 4.2 g/dL (3.9-5); Blood Urea Nitrogen 16 mg/dL (7-17); Calcium 9.7 mg/dL (8.4-10.2); Hemolysis Index 4
[2021-05-25 23:42] LABS: BUN/Creatinine Ratio 23
--- NOTE | 2021-05-29 14:44 | Electrocardiograph Report ---
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
== END 2021-05-26 04:15 | disposition home or self-care (01) ==
LOC: ED 21:48
DX: R07.9 Chest pain, unspecified (principal)
CPT/HCPCS: 36415; 71045; 80053; 84484; 85025; 93005; 99284

== ENCOUNTER 2021-05-29 19:44 | Emergency (ER) | payer OTHER ==
--- NOTE | 2021-05-29 20:46 | Emergency Department Report ---
ED General Adult HPI - General Chief complaint: Dyspnea/Respdistress Stated complaint: COVID+/HEAVY CHEST/BACK PAIN Time Seen by Provider: 05/29/21 20:39 Source: patient Mode of arrival: Ambulatory Limitations: No Limitations - History of Present Illness Initial comments: The patient was evaluated in the emergency department for symptoms described in the history of present illness. He/she was evaluated in the context of the global COVID-19 pandemic, which necessitated consideration that the patient might be at risk for infection with the virus that causes COVID-19. Institutional protocols and algorithms that pertain to the evaluation of patients at risk for COVID-19 are in a state of rapid change based on information released by regulatory bodies including the CDC and federal and state organizations. These policies and algorithms were followed during the patient's care in the emergency department. Please note that these policies, procedures and recommendations changed on a rapid basis. 60-year-old -[place] female presents to the emergency room complaining of chest heaviness and shortness of breath since yesterday evening. Patient states that 2 days ago she has been feeling really good. Patient reports that she had diagnosed with Covid 29 days ago with pneumonia. She denies any fever chills today. She states that she was seen here a couple days ago. Patient reports she does have a primary care provider Dr. Arriaga. She has a history of high cholesterol and does not take her medication every day. Onset/Timin -: days(s) Location: chest Severity scale (0 -10): 6 Quality: other (Chest heaviness) Consistency: constant Improves with: none Worsens with: none Associated Symptoms: shortness of breath. denies: confusion, chest pain, cough, diaphoresis, fever/chills, headaches, loss of appetite, nausea/vomiting Treatments Prior to Arrival: none - Related Data Home Medications Medication Instructions Recorded Confirmed Last Taken Pravastatin 20 mg PO HS 02/19/15 02/19/15 Unknown Previous Rx's Medication Instructions Recorded Last Taken Type oxyCODONE /ACETAMINOPHEN [Percocet 1 tab PO Q6HR PRN #20 tab 11/30/15 Unknown Rx 5/325] Nitrofurantoin [place]/M-Cryst 100 mg PO Q12HR #14 capsule 11/18/19 Unknown Rx [Macrobid CAP] Azithromycin [Zithromax TAB] 250 mg PO QDAY 5 Days #6 tablet 05/11/21 Unknown Rx Benzonatate [Tessalon Perles] 100 mg PO Q8HR PRN #12 capsule 05/11/21 Unknown Rx Dexamethasone 6 mg PO DAILY 7 Days #7 tab 05/11/21 Unknown Rx Allergies Allergy/AdvReac Type Severity Reaction Status Date / Time No Known Allergies Allergy Verified 05/29/21 20:10 ED Review of Systems ROS: Stated complaint: COVID+/HEAVY CHEST/BACK PAIN Other details as noted in HPI Comment: All other systems reviewed and negative ED Past Medical Hx - Past Medical History Previous Medical History?: Yes Hx Hypertension: No Hx Liver Disease: No Hx Renal Disease: No Hx Arthritis: Yes Hx Seizures: No Hx Asthma: No Hx COPD: No Additional medical history: High Cholesterol, Thyroid disease, - Surgical History Past Surgical History?: Yes Additional Surgical History: parathyroid surgery November 2015 - Social History Smoking Status: Never Smoker Substance Use Type: None - Medications Home Medications: Home Medications Medication Instructions Recorded Confirmed Last Taken Type Pravastatin 20 mg PO HS 02/19/15 02/19/15 Unknown History oxyCODONE /ACETAMINOPHEN [Percocet 1 tab PO Q6HR PRN #20 tab 11/30/15 Unknown Rx 5/325] Nitrofurantoin [place]/M-Cryst 100 mg PO Q12HR #14 capsule 11/18/19 Unknown Rx [Macrobid CAP] Azithromycin [Zithromax TAB] 250 mg PO QDAY 5 Days #6 tablet 05/11/21 Unknown Rx Benzonatate [Tessalon Perles] 100 mg PO Q8HR PRN #12 capsule 05/11/21 Unknown Rx Dexamethasone 6 mg PO DAILY 7 Days #7 tab 05/11/21 Unknown Rx ED Physical Exam - General Limitations: No Limitations General appearance: alert, in no apparent distress - Head Head exam: Present: atraumatic, normocephalic - Eye Eye exam: Present: normal appearance - ENT ENT exam: Present: mucous membranes moist - Neck Neck exam: Present: normal inspection - Respiratory Respiratory exam: Present: normal lung sounds bilaterally. Absent: respiratory distress - Cardiovascular Cardiovascular Exam: Present: regular rate, normal rhythm. Absent: systolic murmur, diastolic murmur, rubs, gallop - GI/Abdominal GI/Abdominal exam: Present: soft, normal bowel sounds - Extremities Exam Extremities exam: Present: normal inspection - Back Exam Back exam: Present: normal inspection - Neurological Exam Neurological exam: Present: alert, oriented X3 - Psychiatric Psychiatric exam: Present: normal affect, normal mood - Skin Skin exam: Present: warm, dry, intact, normal color. Absent: rash ED Course Vital Signs 05/29/21 20:13 Temperature 98.4 F Pulse Rate 65 Respiratory 22 Rate Blood Pressure 144/90 [Right] O2 Sat by Pulse 97 Oximetry ED Medical Decision Making - Lab Data Result diagrams: 05/29/21 20:46 05/29/21 20:46 - EKG Data EKG shows normal: sinus rhythm - Radiology Data Radiology results: report reviewed [facility] [address] [place] [address] XRay Report Signed Patient: GIOVANA ZUNIGA MR#: [id number] : 1960 Acct:[id number] Age/Sex: 60 / F ADM Date: 05/29/21 Loc: ED Attending Dr: Ordering Physician: ALFREDA CAMERON Date of Service: 05/29/21 Procedure(s): XR chest routine 2V Accession Number(s): [id number] cc: ALFREDA CAMERON Fluoro Time In Minutes: CHEST 2 VIEWS INDICATION / CLINICAL INFORMATION: Shortness of breath chest heaviness. COMPARISON: 05/25/2021 FINDINGS: SUPPORT DEVICES: None. HEART / MEDIASTINUM: No significant abnormality. LUNGS / PLEURA: No significant pulmonary or pleural abnormality. No pneumo thorax. ADDITIONAL FINDINGS: No significant additional findings. IMPRESSION: 1. No acute findings. Signer Name: Edgardo Walker MD Signed: 05/29/2021 9:26 PM Workstation Name: [id number] Transcribed By: DB Dictated By: EDGARDO WALKER MD Electronically Authenticated By: EDGARDO WALKER MD Signed Date/Time: 05/29/212125 DD/ 24 TD/TT: - Medical Decision Making 60-year-old -[place] female presents to the emergency room complaining of chest heaviness and shortness of breath since yesterday evening. Patient sta kallie that 2 days ago she has been feeling really good. Patient reports that she had diagnosed with Covid 29 days ago with pneumonia. She denies any fever chills today. She states that she was seen here a couple days ago. Patient reports she does have a primary care provider Dr. Arriaga. She has a history of high cholesterol and does not take her medication every day. CBC CMP chest x-ray EKG troponin and D-dimer has been ordered. The patient is resting comfortably and feeling better, is alert and in no distress. The repeat examination is unremarkable and benign. The electrocardiogram shows no signs of acute ischemia and the history, exam, diagnostic testing and current condition do not suggest that this patient is having acute myocardial infarction, significant arrhythmia, unstable angina, esophageal perforation, pulmonary embolism, aortic dissection, pneumothorax, severe pneumonia, sepsis or other significant pathology that would warrant further testing, continued ED treatment, admission, or cardiology or other specialist consultation at this point. The vital signs have been stable. The patient's condition is stable and appropriate for discharge. The patient will pursue further outpatient evaluation with primary care physician, other designated physician or marketing project manager. The patient and/or caregiver have expressed a clear in thorough understanding and agrees to the follow-up as instructed. Critical care attestation.: If time is entered above; I have spent that time in minutes in the direct care of this critically ill patient, excluding procedure time. ED Disposition Clinical Impression: Nonspecific chest pain, Elevated glucose Disposition: HOME / SELF CARE / HOMELESS Is pt being admited?: No Does the pt Need Aspirin: No Condition: Stable Instructions: Nonspecific Chest Pain, Adult, Hyperglycemia, [id number] Additional Instructions: Your labs chest x-ray and EKG are all stable. I recommend to follow-up with your primary care provider. It was noted that your blood sugar was mildly elevated at 159 which means you need to follow-up with your primary care providers. Referrals: KAMI ARRIAGA MD [Primary Care Provider] - 3-5 Days Forms: Work/School Release Form(ED)
[2021-05-29 21:04] LABS: Eosinophils # (Auto) 0.4 K/mm3 (0.0-0.4); Eosinophils % (Auto) 7.5 % (0.0-4.3); Hematocrit 34.3 % (30.3-42.9); Hemoglobin 11.4 gm/dl (10.1-14.3); Lymphocytes # (Auto) 1.8 K/mm3 (1.2-5.4); Lymphocytes % (Auto) 37.4 % (13.4-35.0); Mean Corpuscular HGB Conc 33 % (30-34); Mean Corpuscular Volume 91 fl (79-97); Monocytes # (Auto) 0.3 K/mm3 (0.0-0.8); Monocytes % (Auto) 7.3 % (0.0-7.3); Platelet Count 201 K/mm3 (140-440); Red Blood Count 3.76 M/mm3 (3.65-5.03); Red Cell Distribution Width 15.5 % (13.2-15.2)
[2021-05-29 21:30] LABS: Alanine Aminotransferase 13 units/L (7-56); Albumin 4.1 g/dL (3.9-5); BUN/Creatinine Ratio 21; Blood Urea Nitrogen 19 mg/dL (7-17); Calcium 9.4 mg/dL (8.4-10.2); Hemolysis Index 10
--- NOTE | 2021-05-29 21:30 | XRay Report ---
CHEST 2 VIEWS INDICATION / CLINICAL INFORMATION: Shortness of breath chest heaviness. COMPARISON: 05/25/2021 FINDINGS: SUPPORT DEVICES: None. HEART / MEDIASTINUM: No significant abnormality. LUNGS / PLEURA: No significant pulmonary or pleural abnormality. No pneumothorax. ADDITIONAL FINDINGS: No significant additional findings. IMPRESSION: 1. No acute findings. Signer Name: Edgardo Walker MD Signed: 05/29/2021 9:26 PM Workstation Name: [id number]
[2021-05-30 01:15] VITALS: BP 135/78
--- NOTE | 2021-05-31 11:46 | Electrocardiograph Report ---
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
== END 2021-05-30 01:15 | disposition home or self-care (01) ==
LOC: ED 19:44
DX: R07.9 Chest pain, unspecified (principal); R73.9 Hyperglycemia, unspecified; Z86.16 Personal history of COVID-19
CPT/HCPCS: 36415; 71046; 80053; 84484; 85025; 85379; 93005; 99283

== ENCOUNTER 2021-06-05 05:44 | Emergency (ER) | payer OTHER ==
[2021-06-05 06:07] VITALS: BP 138/81
--- NOTE | 2021-06-05 07:20 | Emergency Department Report ---
ED Chest Pain HPI - General Chief Complaint: Chest Pain Stated Complaint: CHEST PAIN Time Seen by Provider: 06/05/21 06:42 Source: patient Mode of arrival: Ambulatory Limitations: No Limitations - History of Present Illness Initial Comments: 60-year-old female, history of hypercholesterolemia, presents to ED with chest pain. Patient reports being diagnosed with COVID-19 pneumonia approximately 1 month ago. Patient did not require admission at the time. However, patient reports since having Covid, she has been experiencing this chest pain off and on. Patient states she was here last week for same chest pain. During this visit, patient reports chest pain started last night at around 10 PM and was constant through this morning. She states pain is left-sided and substernal, pressure-like, with associated shortness of breath. Patient states she has had some intermittent dyspnea since her Covid infection. Patient states all of her symptoms have now resolved. Patient states she has not yet followed up on an outpatient basis for her chest pain. Patient denies any family history of cardiovascular disease. She denies any tobacco use. MD Complaint: chest pain -: Last night Onset: during rest Pain Location: substernal, left chest Pain Radiation: none Severity scale (0 -10): 6 Quality: pressure Consistency: now resolved Improves With: nothing Worsens With: nothing re: dyspnea. denies: nausea, vomting, diaphoresis Other Symptoms: denies: cough, fever, leg swelling - Related Data Home Medications Medication Instructions Recorded Confirmed Last Taken Pravastatin 20 mg PO HS 02/19/15 02/19/15 Unknown Previous Rx's Medication Instructions Recorded Last Taken Type oxyCODONE /ACETAMINOPHEN [Percocet 1 tab PO Q6HR PRN #20 tab 11/30/15 Unknown Rx 5/325] Nitrofurantoin Dewey/M-Cryst 100 mg PO Q12HR #14 capsule 11/18/19 Unknown Rx [Macrobid CAP] Azithromycin [Zithromax TAB] 250 mg PO QDAY 5 Days #6 tablet 05/11/21 Unknown Rx Benzonatate [Tessalon Perles] 100 mg PO Q8HR PRN #12 capsule 05/11/21 Unknown Rx Dexamethasone 6 mg PO DAILY 7 Days #7 tab 05/11/21 Unknown Rx Allergies Allergy/AdvReac Type Severity Reaction Status Date / Time No Known Allergies Allergy Verified 05/29/21 20:10 Heart Score - HEART Score History: Slightly suspicious EKG: Non-specific Age: 45-65 Risk factors: No known risk factors Troponin: < normal limit HEART Score: 2 - EKG Read Time Time EKG Completed: 06:06 EKG Read Time: 06:06 ED Review of Systems ROS: Stated complaint: CHEST PAIN Other details as noted in HPI Comment: All other systems reviewed and negative Constitutional: denies: chills, fever Respiratory: shortness of breath. denies: cough Cardiovascular: chest pain Gastrointestinal: denies: nausea, vomiting Musculoskeletal: other (Denies leg pain or swelling) ED Past Medical Hx - Past Medical History Hx Hypertension: No Hx Liver Disease: No Hx Renal Disease: No Hx Arthritis: Yes Hx Seizures: No Hx Asthma: No Hx COPD: No Additional medical history: High Cholesterol, Thyroid disease, coronavirus - Surgical History Additional Surgical History: parathyroid surgery November 2015 - Social History Smoking Status: Never Smoker Substance Use Type: None - Medications Home Medications: Home Medications Medication Instructions Recorded Confirmed Last Taken Type Pravastatin 20 mg PO HS 02/19/15 02/19/15 Unknown History oxyCODONE /ACETAMINOPHEN [Percocet 1 tab PO Q6HR PRN #20 tab 11/30/15 Unknown Rx 5/325] Nitrofurantoin [place]/M-Cryst 100 mg PO Q12HR #14 capsule 11/18/19 Unknown Rx [Macrobid CAP] Azithromycin [Zithromax TAB] 250 mg PO QDAY 5 Days #6 tablet 05/11/21 Unknown Rx Benzonatate [Tessalon Perles] 100 mg PO Q8HR PRN #12 capsule 05/11/21 Unknown Rx Dexamethasone 6 mg PO DAILY 7 Days #7 tab 05/11/21 Unknown Rx ED Physical Exam - General Limitations: No Limitations General appearance: alert, in no apparent distress - Head Head exam: Present: atraumatic, normocephalic - Eye Eye exam: Present: normal appearance, EOMI - ENT ENT exam: Present: mucous membranes moist - Neck Neck exam: Present: normal inspection - Respiratory Respiratory exam: Present: normal lung sounds bilaterally. Absent: respiratory distress - Cardiovascular Cardiovascular Exam: Present: regular rate, normal rhythm - GI/Abdominal GI/Abdominal exam: Present: soft. Absent: distended, tenderness - Extremities Exam Extremities exam: Present: normal inspection. Absent: pedal edema, calf tenderness - Neurological Exam Neurological exam: Present: alert, oriented X3 - Psychiatric Psychiatric exam: Present: normal affect, normal mood - Skin Skin exam: Present: warm, dry, intact, normal color ED Course Vital Signs 06/05/21 06/05/21 06:06 07:09 Temperature 97.5 F L Pulse Rate 62 Respiratory 17 Rate Blood Pressure 138/81 [Right] O2 Sat by Pulse 98 97 Oximetry MIMI score - Mimi Score Age > 65: (0) No Aspirin use within the Past 7 Days: (0) No 3 or more CAD Risk Factors: (0) No 2 or more Angina events in past 24 hrs: (0) No Known CAD with more than 50% Stenosis: (0) No Elevated Cardiac Markers: (0) No ST Deviation Greater than 0.5mm: (0) No MIMI Score: 0 ED Medical Decision Making - Lab Data Result diagrams: 06/05/21 07:12 06/05/21 07:12 - EKG Data -: EKG Interpreted by Me EKG shows normal: sinus rhythm, axis, intervals, QRS complexes Rate: normal - EKG Data When compared to previous EKG there are: no significant change Interpretation: other (T wave inversions in V2 and V3) - Radiology Data Radiology results: report reviewed, image reviewed - Medical Decision Making 60-year-old female with chest pain and shortness of breath x1 month since having Covid infection. EKG is unchanged from previous and shows no ST elevations. Troponin is negative. D-dimer is normal. Patient is in no distress. She appears comfortable. Vital signs are normal. Patient advised to follow-up on an outpatient basis. Return precautions given. - Differential Diagnosis Post Covid syndrome, PE, ACS Critical care attestation.: If time is entered above; I have spent that time in minutes in the direct care of this critically ill patient, excluding procedure time. ED Disposition Clinical Impression: Chest pain Disposition: 01 HOME / SELF CARE / HOMELESS Is pt being admited?: No Condition: Stable Instructions: Nonspecific Chest Pain, Adult Referrals: [facility] [Provider Group] - 3-5 Days [facility] [Provider Group] - 3-5 Days Time of Disposition: 08:32
[2021-06-05 07:22] LABS: Bilirubin,Urine NEG (Negative); Blood,Urine NEG (Negative); Color,Urine Yellow (Yellow); Mucus,Urine FEW /HPF; Protein,Urine <15 mg/dL mg/dL (Negative); Urobilinogen,Urine < 2.0 mg/dL (<2.0)
[2021-06-05 07:34] LABS: Basophils % (Auto) 1.1 % (0.0-1.8); Eosinophils # (Auto) 0.5 K/mm3 (0.0-0.4); Eosinophils % (Auto) 11.3 % (0.0-4.3); Hematocrit 35.5 % (30.3-42.9); Hemoglobin 11.7 gm/dl (10.1-14.3); Lymphocytes # (Auto) 1.8 K/mm3 (1.2-5.4); Lymphocytes % (Auto) 40.4 % (13.4-35.0); Mean Corpuscular HGB Conc 33 % (30-34); Mean Corpuscular Volume 92 fl (79-97); Monocytes # (Auto) 0.3 K/mm3 (0.0-0.8); Monocytes % (Auto) 7.6 % (0.0-7.3); Platelet Count 188 K/mm3 (140-440); Red Blood Count 3.85 M/mm3 (3.65-5.03); Red Cell Distribution Width 15.6 % (13.2-15.2)
[2021-06-05 07:49] LABS: Blood Urea Nitrogen 19 mg/dL (7-17); Calcium 9.6 mg/dL (8.4-10.2); Hemolysis Index 12
[2021-06-05 07:51] LABS: INR 0.96 (0.87-1.13)
[2021-06-05 07:52] LABS: Partial Thromboplastin Time 29.7 Sec. (24.2-36.6)
[2021-06-05 08:00] LABS: BUN/Creatinine Ratio 27
--- NOTE | 2021-06-05 08:06 | XRay Report ---
CHEST 2 VIEWS INDICATION / CLINICAL INFORMATION: chest pain. COMPARISON: 05/29/2021 FINDINGS: SUPPORT DEVICES: None. HEART / MEDIASTINUM: No significant abnormality. LUNGS / PLEURA: No significant pulmonary or pleural abnormality. No pneumothorax. ADDITIONAL FINDINGS: No significant additional findings. IMPRESSION: 1. No acute findings. Signer Name: Fritz Caraballo DO Signed: 06/05/2021 8:02 AM Workstation Name: [id number]
--- NOTE | 2021-06-06 10:30 | Electrocardiograph Report ---
[facility] Test Date: 2021-06-05 Test Time: 06:06:24 Pat Name: GIOVANA ZUNIGA Department: Room: Gender: F Treatment Manager: : 1960 Requested By: DULCE MARIA ROSEN Order Number: [id number] Reading MD: Ivan Guy Measurements Intervals [place] Rate: 57 P: 39 UT: 166 QRS: 21 QRSD: 93 T: 13 QT: 424 QTc: 413 Interpretive Statements Sinus bradycardia Nonspecific T abnormalities, anterior leads Compared to ECG 05/29/2021 20:01:38 T-wave abnormality now present Sinus rhythm no longer present Electronically Signed On 06-06-2021 10:30:31 EDT by Ivan Guy
== END 2021-06-05 09:00 | disposition home or self-care (01) ==
LOC: ED 05:44
DX: R07.9 Chest pain, unspecified (principal); Z86.16 Personal history of COVID-19; M19.90 Unspecified osteoarthritis, unspecified site; E78.00 Pure hypercholesterolemia, unspecified; E07.9 Disorder of thyroid, unspecified; Z98.890 Other specified postprocedural states
CPT/HCPCS: 36415; 71046; 80048; 81001; 84484; 85025; 85379; 85610; 85730; 93005; 99283

== ENCOUNTER 2021-12-05 15:00 | Emergency (ER) | payer OTHER ==
[2021-12-05] MEDS ORDERED: KETOROLAC 30 MG/1 ML INJ IV ONE (15:27)
--- NOTE | 2021-12-05 15:27 | Emergency Department Report ---
ED General Adult HPI - General Chief complaint: Chest Pain Stated complaint: CHEST PAIN Time Seen by Provider: 12/05/21 15:21 Source: EMS Mode of arrival: Stretcher Limitations: No Limitations - History of Present Illness Initial comments: Patient is a 61-year-old female who presents with left-sided shoulder pain that radiates to her chest that has been going on since yesterday. Patient states that last night the pain was an 8 out of 10 today it is a 4 out of 10. She states she has had the pain intermittently since she was diagnosed with COVID-19 1 year ago. Patient denies having any shortness of breath any hemoptysis any leg swelling any abdominal pain any fevers or chills. Severity scale (0 -10): 5 - Related Data Home Medications Medication Instructions Recorded Confirmed Last Taken Pravastatin 20 mg PO HS 02/19/15 02/19/15 Unknown Previous Rx's Medication Instructions Recorded Last Taken Type oxyCODONE /ACETAMINOPHEN [Percocet 1 tab PO Q6HR PRN #20 tab 11/30/15 Unknown Rx 5/325] Nitrofurantoin [place]/M-Cryst 100 mg PO Q12HR #14 capsule 11/18/19 Unknown Rx [Macrobid CAP] Azithromycin [Zithromax TAB] 250 mg PO QDAY 5 Days #6 tablet 05/11/21 Unknown Rx Benzonatate [Tessalon Perles] 100 mg PO Q8HR PRN #12 capsule 05/11/21 Unknown Rx Dexamethasone 6 mg PO DAILY 7 Days #7 tab 05/11/21 Unknown Rx Ketorolac [Toradol] 10 mg PO Q6H PRN #15 tab 12/05/21 Unknown Rx Allergies Allergy/AdvReac Type Severity Reaction Status Date / Time No Known Allergies Allergy Verified 05/29/21 20:10 ED Review of Systems ROS: Stated complaint: CHEST PAIN Other details as noted in HPI Constitutional: denies: chills, fever Eyes: denies: eye pain, eye discharge, vision change ENT: denies: ear pain, throat pain Respiratory: denies: cough, shortness of breath, wheezing Cardiovascular: chest pain. denies: palpitations Endocrine: no symptoms reported Gastrointestinal: denies: abdominal pain, nausea, diarrhea Genitourinary: denies: urgency, dysuria, discharge Musculoskeletal: denies: back pain, joint swelling, arthralgia Skin: denies: rash, lesions Neurological: denies: headache, weakness, paresthesias Psychiatric: denies: anxiety, depression Hematological/Lymphatic: denies: easy bleeding, easy bruising ED Past Medical Hx - Past Medical History Hx Hypertension: No Hx Liver Disease: No Hx Renal Disease: No Hx Arthritis: Yes Hx Seizures: No Hx Asthma: No Hx COPD: No Additional medical history: High Cholesterol, Thyroid disease, coronavirus - Surgical History Additional Surgical History: parathyroid surgery November 2015 - Social History Smoking Status: Unknown if ever smoked - Medications Home Medications: Home Medications Medication Instructions Recorded Confirmed Last Taken Type Pravastatin 20 mg PO HS 02/19/15 02/19/15 Unknown History oxyCODONE /ACETAMINOPHEN [Percocet 1 tab PO Q6HR PRN #20 tab 11/30/15 Unknown Rx 5/325] Nitrofurantoin Vilas/M-Cryst 100 mg PO Q12HR #14 capsule 11/18/19 Unknown Rx [Macrobid CAP] Azithromycin [Zithromax TAB] 250 mg PO QDAY 5 Days #6 tablet 05/11/21 Unknown Rx Benzonatate [Tessalon Perles] 100 mg PO Q8HR PRN #12 capsule 05/11/21 Unknown Rx Dexamethasone 6 mg PO DAILY 7 Days #7 tab 05/11/21 Unknown Rx Ketorolac [Toradol] 10 mg PO Q6H PRN #15 tab 12/05/21 Unknown Rx ED Physical Exam - General Limitations: No Limitations General appearance: alert, in no apparent distress - Head Head exam: Present: atraumatic, normocephalic - Eye Eye exam: Present: normal appearance - ENT ENT exam: Present: mucous membranes moist - Neck Neck exam: Present: normal inspection - Respiratory Respiratory exam: Present: normal lung sounds bilaterally. Absent: respiratory distress - Cardiovascular Cardiovascular Exam: Present: regular rate, normal rhythm. Absent: systolic murmur, diastolic murmur, rubs, gallop - GI/Abdominal GI/Abdominal exam: Present: soft, normal bowel sounds - Extremities Exam Extremities exam: Present: normal inspection - Back Exam Back exam: Present: normal inspection - Neurological Exam Neurological exam: Present: alert, oriented X3 - Psychiatric Psychiatric exam: Present: normal affect, normal mood - Skin Skin exam: Present: warm, dry, intact, normal color. Absent: rash ED Course Vital Signs 12/05/21 12/05/2112/05/22 15:11 15:15 18:21 Temperature 98.6 F Pulse Rate 70 60 Respiratory 16 19 Rate Blood Pressure 138/66 137/78 [Right] O2 Sat by Pulse 98 98 97 Oximetry - Reevaluation(s) Reevaluation #1: 12/05/21 20:04 Second troponin is negative I will discharge patient home ED Medical Decision Making - Lab Data Result diagrams: 12/05/21 16:45 12/05/21 16:45 Lab Results 12/05/21 12/05/21 12/05/21 Range/Units 16:45 16:45 18:49 WBC 4.7 (4.5-11.0) K/mm3 RBC 4.09 (3.65-5.03) M/mm3 Hgb 11.9 (10.1-14.3) gm/dl Hct 37.3 (30.3-42.9) % MCV 91 (79-97) fl MCH 29 (28-32) pg MCHC 32 (30-34) % RDW 14.4 (13.2-15.2) % Plt Count 295 (140-440) K/mm3 Lymph % (Auto) 44.3 H (13.4-35.0) % Vilas % (Auto) 7.9 H (0.0-7.3) % Eos % (Auto) 4.1 (0.0-4.3) % Baso % (Auto) 1.1 (0.0-1.8) % Lymph # (Auto) 2.1 (1.2-5.4) K/mm3 [place]as # (Auto) 0.4 (0.0-0.8) K/mm3 Eos # (Auto) 0.2 (0.0-0.4) K/mm3 Baso # (Auto) 0.1 (0.0-0.1) K/mm3 Seg Neutrophils % 42.6 (40.0-70.0) % Seg Neutrophils # 2.0 (1.8-7.7) K/mm3 Sodium 140 (137-145) mmol/L Potassium 3.8 (3.6-5.0) mmol/L Chloride 103.7 (98-107) mmol/L Carbon Dioxide 23 (22-30) mmol/L Anion Gap 17 mmol/L BUN 15 (7-17) mg/dL Creatinine 0.7 (0.6-1.2) mg/dL Estimated GFR > 60 ml/min BUN/Creatinine Ratio 21 % Glucose 88 (65-100) mg/dL Calcium 9.3 (8.4-10.2) mg/dL Troponin T < 0.010 < 0.010 (0.00-0.029) ng/mL - EKG Data -: EKG Interpreted by Me - EKG Data 12/05/21 15:26 EKG time 15: 16 rate 62 sinus rhythm left atrial enlargement nonspecific T wave abnormalities impression borderline EKG - Medical Decision Making Chief medical diagnosis: Left shoulder arthritis Differential medical diagnosis: Non-STEMI, arrhythmia, electrolyte abnormality, pleurisy All the x-rays of shoulder chest IV pain medicine EKG troponin blood work and I will reevaluate the patient. Critical care attestation.: If time is entered above; I have spent that time in minutes in the direct care of this critically ill patient, excluding procedure time. ED Disposition Clinical Impression: Chest wall pain Left shoulder pain Qualifiers: Chronicity: acute Qualified Code(s): M25.512 - Pain in left shoulder Disposition: 01 HOME / SELF CARE / HOMELESS Is pt being admited?: No Does the pt Need Aspirin: No Condition: Stable Instructions: Nonspecific Chest Pain, Adult Prescriptions: Ketorolac [Toradol] 10 mg PO Q6H PRN #15 tab PRN Reason: Pain Referrals: KAMI MCARTHUR MD [Primary Care Provider] - 3-5 Days
[2021-12-05] MEDS ORDERED: oxyCODONE /ACETAMINOPHEN 5-325MG TAB PO ONE (16:18)
--- NOTE | 2021-12-05 16:42 | XRay Report ---
CHEST 2 VIEWS INDICATION / CLINICAL INFORMATION: Chest pain. COMPARISON: 06/05/21. FINDINGS: SUPPORT DEVICES: None. HEART / MEDIASTINUM: The heart size and pulmonary vasculature are normal. The aorta is normal in oksana bing. LUNGS / PLEURA: No significant pulmonary or pleural abnormality. No pneumothorax. ADDITIONAL FINDINGS: No significant additional findings. IMPRESSION: No acute abnormality or significant change. Signer Name: Kam Cottrell MD Signed: 12/05/2021 4:37 PM Workstation Name: [email or web address]
[2021-12-05 17:07] LABS: Basophils # (Auto) 0.1 K/mm3 (0.0-0.1); Basophils % (Auto) 1.1 % (0.0-1.8); Eosinophils # (Auto) 0.2 K/mm3 (0.0-0.4); Eosinophils % (Auto) 4.1 % (0.0-4.3); Hematocrit 37.3 % (30.3-42.9); Hemoglobin 11.9 gm/dl (10.1-14.3); Lymphocytes # (Auto) 2.1 K/mm3 (1.2-5.4); Lymphocytes % (Auto) 44.3 % (13.4-35.0); Mean Corpuscular HGB Conc 32 % (30-34); Mean Corpuscular Volume 91 fl (79-97); Monocytes # (Auto) 0.4 K/mm3 (0.0-0.8); Monocytes % (Auto) 7.9 % (0.0-7.3); Platelet Count 295 K/mm3 (140-440); Red Blood Count 4.09 M/mm3 (3.65-5.03); Red Cell Distribution Width 14.4 % (13.2-15.2)
[2021-12-05 17:25] LABS: Blood Urea Nitrogen 15 mg/dL (7-17); Calcium 9.3 mg/dL (8.4-10.2); Hemolysis Index 9
[2021-12-05 17:28] LABS: BUN/Creatinine Ratio 21
[2021-12-05 18:21] VITALS: BP 137/78
--- NOTE | 2021-12-05 18:27 | XRay Report ---
LEFT SHOULDER 3 VIEW(S) INDICATION / CLINICAL INFORMATION: left shoulder pain COMPARISON: None available. FINDINGS: BONES / JOINT(S): No acute fracture or subluxation. There is mild degenerative change of the glenohum eral joint. There is some osteophyte formation along the greater tuberosity. SOFT TISSUES: No significant abnormality. ADDITIONAL FINDINGS: None. Signer Name: Simon Holland MD Signed: 12/05/2021 6:22 PM Workstation Name: [id number]
--- NOTE | 2021-12-07 20:03 | Electrocardiograph Report ---
[facility] Test Date: 2021-12-05 Test Time: 15:16:16 Pat Name: GIOVANA ZUNIGA Department: Room: Gender: F Gamewell Operator: RAGHAV : 1960 Requested By: NAMRATA HAMMOND Order Number: [id number] Reading MD: Santino Roque Measurements Intervals [place] Rate: 62 P: 36 ND: 152 QRS: 1 QRSD: 94 T: -12 QT: 421 QTc: 429 Interpretive Statements Sinus rhythm Probable left atrial enlargement Nonspecific T abnormalities, anterior leads Compared to ECG 06/05/2021 06:06:24 No significant change Electronically Signed On 12-07-2021 20:02:36 EDT by Santino Roque
== END 2021-12-05 20:58 | disposition home or self-care (01) ==
LOC: ED 15:00
DX: R07.89 Other chest pain (principal); M25.512 Pain in left shoulder; M19.90 Unspecified osteoarthritis, unspecified site; Z98.890 Other specified postprocedural states; Z79.899 Other long term (current) drug therapy
CPT/HCPCS: 36415; 71046; 73030; 80048; 84484; 85025; 93005; 99284; J1885